=== PATIENT | female | born 1985 | race African-American/Black ===

== ENCOUNTER 2017-06-14 12:28 | Emergency (ER) | payer MEDICAID ==
[2017-06-14 13:43] LABS: ABSOLUTE BASOPHILS # (AUTO) 0.1 10^3/uL (0.0-0.2); ABSOLUTE LYMPHOCYTES (AUTO) 1.6 10^3/uL (0.5-4.7); ABSOLUTE MONOCYTES (AUTO) 0.5 10^3/uL (0.1-1.4); ABSOLUTE NEUT (AUTO) 8.2 10^3/uL (1.7-8.2); BASOPHILS % (AUTO) 1.3 % (0-2); EOSINOPHILS % (AUTO) 0.4 % (0-6); HEMATOCRIT 42.3 % (36.0-47.0); HEMOGLOBIN 13.9 g/dL (12.0-15.5); HGB HCT DIFFERENCE -0.6; LYMPHOCYTES % (AUTO) 15.3 % (13-45); MEAN CORPUSCULAR VOLUME 91 fl (80-97); MONOCYTES % (AUTO) 4.8 % (3-13); RED BLOOD COUNT 4.64 10^6/uL (3.72-5.28); RED CELL DISTRIBUTION WIDTH 14.1 % (11.5-14.0); SEGMENTED NEUTROPHILS % (AUTO) 78.2 % (42-78); WHITE BLOOD COUNT 10.5 10^3/uL (4.0-10.5)
--- NOTE | 2017-06-14 13:47 | RADIOLOGY REPORT (SQ) ---
EXAM DESCRIPTION: CT HEAD WITHOUT COMPLETED DATE/TIME: 06/14/2017 1:30 pm REASON FOR STUDY: Seizures, reports Hx brain tumor COMPARISON: None. TECHNIQUE: Axial images acquired through the brain without intravenous contrast. Images reviewed wi th bone, brain and subdural windows. Images stored on PACS. All CT scanners at this facility use dose modulation, iterative reconstruction, and/or weight based d osing when appropriate to reduce radiation dose to as low as reasonably achievable (ALARA). [facility]: Dose Right [facility]: CareDose [facility]: Dose Right [facility]: Teradose 4D [facility]: [employer] RADIATION DOSE: Up-to-date CT equipment and radiation dose reduction techniques were employed. CTDIv ol: 64.6 mGy. DLP: 1292 mGy-cm. mGy. LIMITATIONS: None. FINDINGS: VENTRICLES: Normal size and contour. CEREBRUM: No masses. No hemorrhage, no midline shift or mass effect. There is a small semilunar are a of decreased attenuation in left parietal region on image 32. There is no associated edema. Normal parker/white matter differentiation. No areas of low density in the white matter. CEREBELLUM: No masses. No hemorrhage. No alteration of density. No evidence for acute infarction. EXTRAAXIAL SPACES: No fluid collections. No masses. ORBITS AND GLOBE: No intra- or extraconal masses. Normal contour of globe without masses. CALVARIUM: No fracture. PARANASAL SINUSES: There is opacification of a portion of the frontal sinus in the midline. SOFT TISSUES: No mass or hematoma. OTHER: No other significant finding. IMPRESSION: 1. There is a small area of decreased attenuation in the left parietal cortex as descri bed. This could represent limited infarct. There is no real mass effect associated with this. Ther e is no edema. Likely inconsequential, except for the history. 2. There is frontal sinus disease. COMMENT: Quality ID # [id number]: Final reports with documentation of one or more dose reduction techniques (e.g., Automated exposure control, adjustment of the mA and/or kV according to patient size, use of iterative reconstruction technique) TECHNICAL DOCUMENTATION: JOB ID: [id number] [employer]- All Rights Reserved
[2017-06-14 14:11] LABS: ALANINE AMINOTRANSFERASE 12 U/L (9-52); ALKALINE PHOSPHATASE 59 U/L (38-126); ASPARTATE AMINO TRANSFERASE 30 U/L (14-36); BILIRUBIN,DIRECT 0.4 mg/dL (0.0-0.4); BILIRUBIN,TOTAL 0.8 mg/dL (0.2-1.3); BLOOD UREA NITROGEN 13 mg/dL (7-20); CALCIUM 10.1 mg/dL (8.4-10.2); CARBON DIOXIDE 11 mmol/L (22-30); CHLORIDE 102 mmol/L (98-107); CREATININE RESULT 1.04 mg/dL (0.52-1.25); GLUCOSE 130 mg/dL (75-110); TOTAL PROTEIN 8.5 g/dL (6.3-8.2)
[2017-06-14 14:23] LABS: SODIUM 141.5 mmol/L (137-145)
[2017-06-14 14:26] LABS: ANION GAP 29 (5-19)
--- NOTE | 2017-06-14 17:23 | ER Document Report ---
ED Seizure - General Chief Complaint: Probable Seizure Stated Complaint: POSSIBLE SEIZURE Time Seen by Provider: 06/14/17 12:34 Notes: Patient has had 2 seizures this morning, one at home before EMS was called and a another one just before EMS arrived and she was still postictal. Patient has a known history of seizures for which she is supposed to take Keppra 500 mg in the morning and 1000 mg in the evening, and Lyrica 300 mg daily. Patient seems somewhat confused, but is able to answer questions. She is not sure when she has been taking her medicines and quite frankly, it sounds as if she is very noncompliant. She says she thinks she did not take her dose of medicine last night and is not sure if she took it this morning. Patient has not been febrile. No vomiting or diarrhea. Sees a neurologist in [place]. Has medication bottles that have on them Siri Multani NP. Patient says she has seizures secondary to a brain tumor. Denies having had any brain surgery. - Related Data Allergies/Adverse Reactions: No Known Allergies Allergy (Verified 06/14/17 12:49) Past Medical History - Social History Smoking Status: Never Smoker Chew tobacco use (# tins/day): No Frequency of alcohol use: None Drug Abuse: None Family History: Reviewed & Not Pertinent Patient has suicidal ideation: No Patient has homicidal ideation: No Pulmonary Medical History: Denies: Hx Asthma Neurological Medical History: Reports: Hx Seizures Surgical Hx: Negative Review of Systems - Review of Systems Notes: REVIEW OF SYSTEMS: CONSTITUTIONAL : Denies fever. EENT: Denies eye, ear, nose or mouth or throat pain or other symptoms. CARDIOVASCULAR: Denies chest pain. RESPIRATORY: Denies cough, chest congestion, or shortness of breath. GASTROINTESTINAL: Denies abdominal pain or nausea, vomiting, or diarrhea. GENITOURINARY: Denies difficulty or painful urinating, urinary frequency, blood in urine. MUSCULOSKELETAL: Denies back or neck pain. Denies joint pain or swelling. SKIN: Denies rash or skin lesions. NEUROLOGICAL: Denies LOC or altered mental status, although the patient does seem a bit slow in answering questions and seems as if she might be slightly confused. However, she is able to answer that she sees a neurologist in [place] and the last time she was there was in February and does answer how she supposed to be taking her medications, although she does not confirm that she is actually taking them as prescribed. Denies headache. Denies sensory loss or motor deficits. ALL OTHER SYSTEMS REVIEWED AND NEGATIVE. Physical Exam - Vital signs Vitals: Resp 16 06/14/17 12:35 - Notes Notes: PHYSICAL EXAMINATION: GENERAL: Well-appearing, in no acute distress. Afebrile. HEAD: Atraumatic, normocephalic. EYES: Pupils equal round and reactive to light, extraocular movements intact. NECK: Normal range of motion, supple. LUNGS: Breath sounds clear and equal bilaterally. HEART: Regular rate and rhythm without murmurs. ABDOMEN: Soft, nontender. No guarding or rebound. BACK: No tenderness throughout entire back. EXTREMITIES: Normal range of motion without pain. NEUROLOGICAL: Normal speech, normal gait, with some very slight unsteadiness on her feet.. Normal sensory, motor, and reflex exams. Awake, alert, and oriented x3. PSYCH: Normal mood, normal affect. SKIN: Warm, dry, no rashes. Course - Re-evaluation Re-evalutation: 06/14/17 19:47 Patient did have one full-blown, grand mal seizure while being evaluated in the department. I called to [place] and spoke with a Dr. Michelle, neurologist who was able to access this patient's records. He tells me that the patient has neurofibromatosis of the brain and that is the etiology for her seizures. There is no history in the patient's record of her having a brain tumor. She has not had any brain surgeries. He indicates that there is concern that the patient has not been compliant with her medications. Her last visit there in [place] was in January. He also confirms that she is supposed to be taking Keppra 500 mg in the morning and 1000 mg in the evening as well as Lyrica 300 mg daily. However, additionally, she had Prozac recommended but has apparently never filled the prescription because she is not taking that medication. Patient was felt able to be discharged and her sister came and picked her up to take her home. - Vital Signs Vital signs: Temp Pulse Resp BP Pulse Ox 98.4 F 20 108/77 98 06/14/17 17:02 06/14/17 17:02 06/14/17 17:02 06/14/17 17:02 - Laboratory Result Diagrams: 06/14/17 13:28 06/14/17 13:28 Laboratory results interpreted by me: 06/14/17 06/14/17 13:28 13:28 RDW 14.1 H Seg Neutrophils % 78.2 H Carbon Dioxide 11 L Anion Gap 29 H Glucose 130 H Total Protein 8.5 H Discharge - Discharge Clinical Impression: Seizures, Neurofibromatosis Condition: Stable Disposition: HOME, SELF-CARE Additional Instructions: Seizure, Known Epileptic You have had a seizure. Seizures may "break through" in an epileptic due to stress of infection or injury, a change in blood chemistry, or drug and alcohol use. Another common cause is failure to take medication as prescribed. Your doctor has evaluated your situation for the likely cause of this seizure. It is important that you follow his advice concerning any medication changes and follow-up care. Further testing of anti-seizure medication levels in your blood may be necessary. If you have a [place] car [place] driver's license, it's important that you DO NOT DRIVE until given permission by your physician. This seizure must be reported to the [place] car [place] driver 's license bureau. Call the doctor or return if seizures recur, or if new or unusual symptoms arise -- such as severe headache, confusion, excessive sleepiness, local weakness or numbness, neck stiffness, or fever. With your condition, you are likely to have seizures in the future. It is very important that you take your medications as prescribed. Call your neurologist office in [place] tomorrow to schedule a follow-up appointment with him as soon as possible. FOLLOW-UP CARE: If you have been referred to a physician for follow-up care, call the physician s office for an appointment as you were instructed or within the next two days. If you experience worsening or a significant change in your symptoms, notify the physician immediately or return to the Emergency Department at any time for re-evaluation.
[2017-06-14 17:49] VITALS: BP 108/77
== END 2017-06-14 17:25 | disposition home or self-care (01) ==
LOC: ER 12:28
DX: Q85.00 Neurofibromatosis, unspecified (principal); R56.9 Unspecified convulsions
CPT/HCPCS: 36415; 70450; 80053; 80177; 84703; 85025; 99284